=== PATIENT | male | born 2000 | race Two or more races ===

== ENCOUNTER 2020-07-24 08:25 | Emergency (ER) | payer MEDICAID, OTHER ==
[~2020-07-24] VITALS: Ht 170.2 cm; Wt 56.0 kg
[2020-07-24 08:27] VITALS: BP 127/62
== END 2020-07-24 10:00 | disposition home or self-care (01) ==
LOC: ER 08:25
DX: J02.8 Acute pharyngitis due to other specified organisms (principal)
CPT/HCPCS: 99282